=== PATIENT | female | born 1940 | race African-American/Black ===

== ENCOUNTER 2017-02-27 08:53 | Inpatient (IN) | payer MEDICARE, OTHER, SELFPAY ==
[2017-02-15 09:49] LABS: BASOPHILS 0.2 %; BASOPHILS ABSOLUTE 0.02 10/3/uL (0.0-0.16); EOSINOPHILS 2.2 %; EOSINOPHILS ABSOLUTE 0.21 10/3/uL (0.0-0.53); IMMATURE GRANULOCYTES 0.3 %; IMMATURE GRANULOCYTES ABSOLUTE 0.03 10/3/uL (0.0-0.11); LYMPHOCYTES 26.7 %; LYMPHOCYTES ABSOLUTE 2.57 10/3/uL (0.67-4.30); MEAN CORPUS HGB CONC 33.4 g/dL (32.0-36.0); MEAN CORPUSCULAR HEMOGLOB 27.6 pg (26.0-34.0); MEAN CORPUSCULAR VOLUME 82.7 fL (80-100); MEAN PLATELET VOLUME 10.4 fL (9.2-13.0); MONOCYTES ABSOLUTE 0.77 10/3/uL (0.21-1.20); NEUTROPHILS 62.6 %; NEUTROPHILS ABSOLUTE 6.03 10/3/uL (2.02-8.40); PLATELET COUNT 288 10/3/uL (150-400); RBC DISTRIBUTION WIDTH 14.5 % (12.0-16.0); RED CELL COUNT 4.34 10/6/uL (4.0-5.6)
[2017-02-15 09:50] LABS: HEMATOCRIT 35.9 % (36.0-48.0); WHITE BLOOD CELLS 9.6 10/3/uL (4.5-10.5)
[2017-02-15 09:51] LABS: MANUAL DIFF NO %
[2017-02-15 09:55] LABS: INTERNATIONAL NORMAL RATI 1.1 UNITS (-); PROTIME (NOT ORD) 14.5 SEC (12.0-14.5)
[2017-02-15 10:01] LABS: ASCORBIC ACID (UR NOT ORDER) NEG (NEG); BILIRUBIN, URINE NEGATIVE (NEG); KETONE, URINE NEGATIVE (NEG); LEUKOCYTE ESTERASE(NOT OR LARGE (NEG); WBC (NOT ORDERED) (RFLEX) 7 (0-5)
[2017-02-15 10:05] LABS: A/G RATIO 1.1 (0.7-1.9); ALBUMIN 3.9 G/DL (3.5-5.0); ALKALINE PHOSPHATASE 110 U/L (45-117); CALCIUM, SERUM 9.4 MG/DL (8.5-10.4); CHLORIDE, SERUM 104 MMOL/L (96-112); CO2 (CARBON DIOXIDE) 30 MMOL/L (24-34); CREATININE 1.16 MG/DL (0.55-1.02); GFR AFRICAN AMERICAN 52 ML/MIN (>=60); GFR NON AFRICAN AMERICAN 45 ML/MIN (>=60); GLOBULIN 3.4 G/DL (2.5-4.1); GLUCOSE, SERUM 124 MG/DL (60-99); POTASSIUM, SERUM 4.3 MMOL/L (3.5-5.3); SGOT(AST) 9 U/L (5-40); SGPT(ALT) 16 U/L (5-65); SODIUM, SERUM 142 MMOL/L (135-148); TOTAL BILIRUBIN 0.6 MG/DL (0-1.2); TOTAL PROTEIN 7.3 G/DL (6.0-8.5)
[2017-02-15 10:08] LABS: BUN (BLOOD UREA NITROGEN) 14 MG/DL (6-23)
--- NOTE | ~2017-02-27 | OP ---
Record Of Operation [facility] [address] [place]. [address] NAME: MONTY METZ : 36 STATUS : ADM IN PAT#: [id number] AGE: 76 ADM/REG DATE : 02/27/17 MR#: [id number] REPORT SERV DATE: 03/01/17 DICTATED BY: ESTUARDO JONES DATE: 02/28/17 REPORT STATUS : Draft TRANSCRIBED BY: MODLázaro DATE: 02/28/17 DATE OF PROCEDURE: 02/27/2017 PREOPERATIVE DIAGNOSIS: Severe right knee degenerative joint disease. POSTOPERATIVE DIAGNOSIS: Severe right knee degenerative joint disease. OPERATION: Right posterior stabilized total knee replacement, cemented. SIDE: Right. SIZE: See chart. ANESTHESIA: See chart. ESTIMATED BLOOD LOSS: About 10 mL. TOURNIQUET TIME: Approximately 1 hour and 10 minutes. COMPLICATIONS: None. SPECIMENS: Articular surfaces. PROCEDURE IN DETAIL: The patient was appropriately identified and marked. The operative side agreed with the consent form and it was checked by all members of the surgical team. The patient was taken to the operating room and anesthesia was induced per the anesthesiologist. The patient was carefully transferred to the operating table without incident. The patient received appropriate prophylactic antibiotics and a Brown catheter was placed in the standard sterile technique. The patient was then carefully positioned, padded, prepped and draped in the normal sterile fashion. The operative leg had been appropriately identified and checked by all members of the operating team against the consent form and found to be the correct limb. The patient's lower extremity was then exsanguinated with an Chan wrap and a tourniquet was inflated to 350 mm/Hg. Sharp dissection was carried out through a straight midline longitudinal incision and electrocautery through the fat. Sharp quad splitting approach was carried out between about the medial 10 percent of the tendon and the lateral 90 percent of the tendon and down around the medial aspect of the patella and then 1 cm medial to the tibial tubercle. The patella was carefully everted and the posterior fat pad was excised and gentle MCL elevation was carried out off the proximal medial tibia subperiosteally. IM guide was placed in the distal femur after using the appropriate drill. The distal femoral cutting guide was held with 2 pins and the distal cut made. Meniscal fragments and the ACL and the PCL were excised with electrocautery, carefully staying anterior to the posterior fat pad. The proximal tibial alignment guide was set appropriately and the proximal tibial cut made. Spacer block verified full extension with excellent mediolateral balance. Sizing guide was used to place 2 drill holes in the distal femur and the four-in-one cutting block was then placed, impacted and checked Record Of Operation [facility] [address] [place]. [address] NAME: MONTY METZ : 38 STATUS : ADM IN PAT#: [id number] AGE: 76 ADM/REG DATE : 02/27/17 MR#: [id number] REPORT SERV DATE: 03/01/17 DICTATED BY: ESTUARDO JONES DATE: 02/28/17 REPORT STATUS : Draft TRANSCRIBED BY: MODLázaro DATE: 02/28/17 to be sure it would not notch with an lamberto wing and it was held with 2 pins. The anterior cut, posterior cut, anterior chamfer and posterior chamfer cuts were made. The pins were removed and the block was removed. A posterior release was carried out with a curved 3/4 inch osteotome staying right on the bone posteriorly. The box-cut guide was then placed, impacted and held with 2 pins and a reciprocating saw was used to cut out the box. With the trial components in place, there was excellent medial/lateral balance. The patella was then measured with a caliper, cut first with an oscillating saw and then reamed with a patella reamer. With the trial patella in place, there was excellent patellar tracking. Rotation was marked on the tibia and the tibia prepared with a drill and stamp chisel. All surfaces were then copiously irrigated with pulsatile lavage, carefully dried and then vacuum-mixed cement was pressurized with a cement gun in a doughy phase. The tibial component was placed, impacted and excess cement was removed. The cement was then pressurized in the femur and placed on the posterior runners of the femoral component, which was placed, impacted and excess cement removed and the knee was brought out into extension on a trial spacer. The cement was then pressurized in the patella. Patellar component was then placed, clamped and excess cement was removed. Once all cement was hardened, the knee was taken through range of motion. Further extruded cement was removed with a small osteotome. Then based on the trial inserts, we decided on the actual insert, which was placed in the standard fashion and held with a locking mechanism. The knee was then copiously irrigated and then closed in a layered fashion over a medium Hemovac drain superolaterally with interrupted #1 in the deep fascia, 2-0 subcutaneous and karley in the skin. The wounds were dressed sterilely and the tourniquet was deflated. The patient was then awakened and taken to the postanesthesia care unit without incident. All counts were correct at the end of the case. WTB/MODL Deondre Jones M.D. / [id number] CC: Antonia Michelle M.D.
--- NOTE | ~2017-02-27 | DS ---
Discharge Summary [facility] [address] [facility] [place]. [address] NAME: MONTY METZ : 36 STATUS : DIS IN PAT#: [id number] AGE: 76 ADM/REG DATE : 02/27/17 MR#: [id number] REPORT SERV DATE: 03/14/17 DICTATED BY: ESTUARDO JONES DATE: 03/13/17 REPORT STATUS : Draft TRANSCRIBED BY: LYSSA DATE: 03/13/17 Data Collection from hospitalization DISCHARGE DIAGNOSES: 1. Severe right knee degenerative joint disease. 2. Hypertension. 3. Systemic lupus erythematosus. 4. Arthritis. CONSULTATIONS: None. PROCEDURES PERFORMED: Right posterior stabilized total knee replacement, cemented, 02/27/2017. PATHOLOGY: Right knee joint arthroplasty - degenerative joint disease, no evidence was seen of an infectious or neoplastic process. MEDICATIONS: Aspirin 81 mg daily, Prinivil 20 mg every morning, Zofran 4 mg every six hours as needed, Percocet 5/325 one to two tablets every four to six hours as needed, Metamucil one packet daily, and Coumadin 2.5 mg daily. CONDITION AT DISCHARGE: Stable. DISPOSITION: The patient was discharged home to be followed by home health care on a regular diet with activities as instructed. She would follow up with Edwin Schneider on 03/13/2017. HOSPITAL COURSE: This is a 76-year-old female who had been seen in the clinic for followup of right knee pain. She had an injection on 03/01/2016, which she said helped for about a month. The patient had severe right knee degenerative joint disease. Treatment options were discussed and it was elected to proceed with surgical intervention. She was admitted to the hospital at this time for further evaluation and treatment. Upon admission, she was taken to the operating room where she underwent the above-mentioned procedure. She tolerated this well, and there were no complications. On postop day #1, she was doing well. She was up sitting in a bedside chair. TIMBO hose were in place. Blood pressure was controlled. Lisinopril was given. On 03/01/2017, she was participating with Physical Therapy. She was evaluated by Occupational and Physical Therapy. Over the next couple of days, she continued to progress. She was up sitting in a bedside chair. Discharge planning was performed. On 03/03/2017, she had no new complaints. She was alert and cooperative. Discharge instructions were given. Due to her improved and stable condition, she was discharged home to be followed by home health care with the above-stated instructions. Information collected by: Maria Eugenia Dai I submit the above information as my discharge summary. Discharge Summary [address] [address] NAME: MONTY METZ : 36 STATUS : DIS IN PAT#: [id number] AGE: 76 ADM/REG DATE : 02/27/17 MR#: [id number] REPORT SERV DATE: 03/14/17 DICTATED BY: ESTUARDO JONES DATE: 03/13/17 REPORT STATUS : Draft TRANSCRIBED BY: LYSSA DATE: 03/13/17 KATHLEEN/LYSSA Deondre Jones M.D. / [id number] CC: Antonia Michelle M.D.
[~2017-02-27 08:53] MED LIST: ASAB PO; FERROUS SULF325 M1 PO; METPAKSF PO; MULTIVIT/MIN PO; PRIN20 PO; ULTRAM50 PO
[2017-02-28 05:43] LABS: HEMATOCRIT 25.1 % (36.0-48.0); HEMOGLOBIN 8.3 g/dL (12.0-16.0)
[2017-02-28 05:45] LABS: INTERNATIONAL NORMAL RATI 1.2 UNITS (-); PROTIME (NOT ORD) 15.5 SEC (12.0-14.5)
[2017-02-28 05:51] LABS: BUN (BLOOD UREA NITROGEN) 11 MG/DL (6-23); CHLORIDE, SERUM 110 MMOL/L (96-112); CO2 (CARBON DIOXIDE) 28 MMOL/L (24-34); CREATININE 1.14 MG/DL (0.55-1.02); GFR AFRICAN AMERICAN 53 ML/MIN (>=60); GFR NON AFRICAN AMERICAN 46 ML/MIN (>=60); GLUCOSE, SERUM 105 MG/DL (60-99); POTASSIUM, SERUM 4.4 MMOL/L (3.5-5.3); SODIUM, SERUM 145 MMOL/L (135-148)
[2017-02-28 05:52] LABS: CALCIUM, SERUM 8.4 MG/DL (8.5-10.4)
[2017-03-01 05:31] LABS: HEMATOCRIT 25.7 % (36.0-48.0); HEMOGLOBIN 8.7 g/dL (12.0-16.0)
[2017-03-01 05:43] LABS: PROTIME (NOT ORD) 22.2 SEC (12.0-14.5)
[2017-03-02 05:37] LABS: INTERNATIONAL NORMAL RATI 2.6 UNITS (-)
[2017-03-02 05:39] LABS: PROTIME (NOT ORD) 27.8 SEC (12.0-14.5)
[2017-03-02 05:51] LABS: HEMATOCRIT 27.1 % (36.0-48.0); HEMOGLOBIN 9.1 g/dL (12.0-16.0)
[2017-03-03 06:18] LABS: INTERNATIONAL NORMAL RATI 2.6 UNITS (-); PROTIME (NOT ORD) 27.7 SEC (12.0-14.5)
[2017-03-03] MEDS ORDERED: ZOFRAN4 PO (10:31)
[2017-03-03] MEDS ORDERED: PCET PO (10:32)
[2017-03-03] MEDS ORDERED: C25 PO (10:33)
== END 2017-03-03 10:55 | disposition home health service (06) | DRG 470 ==
LOC: SDC/OF 08:53 → PACU 12:59 → 3JRC 13:56
PROVIDERS: Specialist
PROC: 3E0T3CZ (ICD-10-PCS; 2017-02-27)
PROC: 0SRC0J9 Replacement of Right Knee Joint with Synthetic Substitute, Cemented, Open Approach (ICD-10-PCS; principal; 2017-02-27 10:30)
DX: M17.11 Unilateral primary osteoarthritis, right knee (principal); I10 Essential (primary) hypertension; Z79.82 Long term (current) use of aspirin; Z79.899 Other long term (current) drug therapy
CPT/HCPCS: 71020; 80048; 80053; 81001; 85014; 85018; 85025; 85610; 87086; 87641; 88305; 88311; 93005; 97110-GP; 97116-GP; 97150-GP; 97161-GP; 97165-GO; 97530-GP; A9270-GY; C1776; G8987-CJ-GO; G8988-CJ-GO; G8989-CJ-GO; J0690; J1885; J2250; J2270; J2274; J2405; J2795; J3010